=== PATIENT | male | born 1960 | race American Indian/Alaskan Native ===

== ENCOUNTER 2020-05-22 14:35 | Emergency (ER) | payer MEDICAID, OTHER ==
[~2020-05-22] VITALS: Ht 182.9 cm; Wt 122.7 kg
[~2020-05-22 14:35] MED LIST: ASPI-611 PO; HYDR-4353 PO; IBUP-1984 PO; LISI40TA4 PO
[2020-05-22 16:10] LABS: BASOPHILS # (AUTO) 0.1 X10'3 (0-0.2); BASOPHILS % (AUTO) 0.6 % (0-1); EOSINOPHILS # (AUTO) 0.2 X10'3 (0-0.9); EOSINOPHILS % (AUTO) 1.8 % (0-6); HEMATOCRIT 28.6 % (42.0-52.0); HEMOGLOBIN 9.5 g/dl (14.0-17.9); LYMPHOCYTES # (AUTO) 1.3 X10'3 (1.1-4.8); LYMPHOCYTES % (AUTO) 14.6 % (21-51); MEAN CORPUSCULAR HEMOGLOBIN 30.5 PG (27.0-31.0); MEAN CORPUSCULAR HGB CONC 33.1 g/dL (33.0-36.5); MEAN CORPUSCULAR VOLUME 92.2 FL (78-98); MEAN PLATELET VOLUME 8.5 FL (7.4-10.4); MONOCYTES # (AUTO) 1.3 X10'3 (0-0.9); MONOCYTES % (AUTO) 14.3 % (2-12); NEUTROPHILS # (AUTO) 6.1 X10'3 (1.8-7.7); NEUTROPHILS % (AUTO) 68.7 % (42-75); PLATELET COUNT 205 X10'3 (140-440); RED BLOOD COUNT 3.11 X10'6 (4.70-6.10); RED CELL DISTRIBUTION WIDTH 16.2 % (11.5-14.5); WHITE BLOOD COUNT 8.9 X10'3 (4.5-11.0)
[2020-05-22] MEDS ORDERED: furosemide 10 MG/1 ML 10ml inj IV ONE (16:15)
[2020-05-22 16:26] LABS: ALANINE AMINOTRANSFERASE 41 U/L (12-78); ALBUMIN 2.7 G/DL (3.4-5.0); ALBUMIN/GLOBULIN RATIO 0.8 (1.1-1.5); ALKALINE PHOSPHATASE 151 IU/L (46-116); ANION GAP 6 (8-16); ASPARTATE AMINO TRANSFERASE 81 U/L (10-37); BILIRUBIN,TOTAL 2.5 MG/DL (0.1-1.0); BLOOD UREA NITROGEN 5 MG/DL (7-18); BUN/CREATININE RATIO 5.3 (5.4-32.0); CALCIUM 8.4 MG/DL (8.5-10.1); CHLORIDE 102 MMOL/L (99-107); CREATININE 0.95 MG/DL (0.60-1.10); GLUCOSE 110 MG/DL (70-104); POTASSIUM 3.8 MMOL/L (3.5-5.1); SODIUM 137 MMOL/L (135-145); TOTAL CARBON DIOXIDE 28.6 MMOL/L (24-32); TOTAL PROTEIN 6.3 G/DL (6.4-8.2); eGFR 81 ML/MIN
[2020-05-22 16:33] LABS: CLARITY,URINE CLEAR (Clear); COLOR,URINE YELLOW (Yellow); GLUCOSE, URINE NEGATIVE (Neg); KETONES,URINE TRACE mg/dl (Neg); LEUKOCYTE ESTERASE ,URINE TRACE (Neg); NITRITES, URINE NEGATIVE (Neg); OCCULT BLOOD,URINE NEGATIVE (Neg); PROTEIN,URINE NEGATIVE (Neg)
[2020-05-22 16:37] LABS: LIPASE < 50 U/L (73-393); MAGNESIUM 1.7 MG/DL (1.5-2.4)
[2020-05-22 16:40] LABS: UA COLLECTION TYPE URINAL
[2020-05-22 16:41] LABS: BACTERIA,URINE NONE SEEN /HPF (Neg); MUCUS STRANDS FEW /LPF (Neg); RBC,URINE NONE SEEN /HPF (0-2); SQUAMOUS EPITHELIAL CELL,UR FEW /LPF (FEW); TRANSITIONAL EPI CELLS,URINE FEW /HPF; WBC,URINE 0-4 /HPF (0-4)
[2020-05-22 16:59] VITALS: BP 123/75
[2020-05-22 17:21] LABS: ETHANOL < 0.010 GM/DL (0.0-0.010)
--- NOTE | 2020-05-22 17:32 | NUR ---
pt ambulated without assistance around the providers and nurses station, provider visualized pt ambulating.
[2020-05-22 18:10] LABS: URINE AMPHETAMINE SCREEN NEGATIVE (Neg); URINE BARBITUATE SCREEN NEGATIVE (Neg); URINE BENZODIAZEPINES SCREEN NEGATIVE (Neg); URINE CANNABINOID SCREEN NEGATIVE (Neg); URINE COCAINE SCREEN NEGATIVE (Neg); URINE METHADONE SCREEN NEGATIVE (Neg); URINE OPIATE SCREEN POSITIVE (Neg); URINE PHENCYCLIDINE SCREEN NEGATIVE (Neg)
== END 2020-05-22 19:02 | disposition home or self-care (01) ==
LOC: ER 14:36
DX: R60.0 Localized edema (principal); K70.30 Alcoholic cirrhosis of liver without ascites; R42 Dizziness and giddiness; I48.91 Unspecified atrial fibrillation; I10 Essential (primary) hypertension; Z87.891 Personal history of nicotine dependence; Z72.89 Other problems related to lifestyle; Z79.82 Long term (current) use of aspirin; Z79.899 Other long term (current) drug therapy
CPT/HCPCS: 36415; 70450; 80053; 80305; 80320; 81001; 82140; 83690; 83735; 83880; 85025; 85610; 87088; 93005; 96374; 99285; J1940

== ENCOUNTER 2020-06-18 07:57 | Day surgery (SDC) | payer MEDICAID, OTHER ==
[~2020-06-18] VITALS: Ht 182.9 cm; Wt 131.5 kg
[2020-06-18] VITALS (8 sets, daily range): BP systolic 104–114; BP diastolic 66–75
[2020-06-18] MEDS ORDERED: albumin 25% 100mL bottle x 1 IV PRN (08:20)
[2020-06-18] MEDS ORDERED: PANT40TA54 PO (08:59)
[2020-06-18] MEDS ORDERED: SERT100T10 PO (08:59)
[2020-06-18] MEDS ORDERED: DIGO250T PO (08:59)
[2020-06-18] MEDS ORDERED: DILT-35 PO (08:59)
[2020-06-18] MEDS ORDERED: FOLI0.4T14 PO (08:59)
[2020-06-18] MEDS ORDERED: ALBU18HF2 (08:59)
[2020-06-18] MEDS ORDERED: METO-395 PO (08:59)
[2020-06-18] MEDS ORDERED: BUPR1PAT (08:59)
[2020-06-18] MEDS ORDERED: AMIO200T61 PO (08:59)
[2020-06-18] MEDS ORDERED: ONDA8TAB13 PO (08:59)
[2020-06-18] MEDS ORDERED: FURO40TA4 PO (08:59)
[2020-06-18] MEDS ORDERED: FERR324T PO (08:59)
[2020-06-18] MEDS ORDERED: POTA20TA19 PO (08:59)
[2020-06-18] MEDS ORDERED: LORA-269 PO (08:59)
[2020-06-18] MEDS ORDERED: SPIR25TA5 PO (08:59)
== END 2020-06-18 11:23 | disposition home or self-care (01) ==
LOC: SSTAY O 07:57
PROVIDERS: ATTEND Radiology Vascular & Interventional Radiology
DX: R18.8 Other ascites (principal); K74.60 Unspecified cirrhosis of liver; K72.90 Hepatic failure, unspecified without coma; I10 Essential (primary) hypertension; I48.91 Unspecified atrial fibrillation; Z87.891 Personal history of nicotine dependence; Z79.82 Long term (current) use of aspirin; Z79.899 Other long term (current) drug therapy; Z98.890 Other specified postprocedural states
CPT/HCPCS: 49083; P9047

== ENCOUNTER 2020-07-12 07:08 | Day surgery (SDC) | payer MEDICAID ==
[2020-07-12] VITALS (13 sets, daily range): BP systolic 91–125; BP diastolic 55–79
[~2020-07-12] VITALS: Ht 182.9 cm; Wt 127.5 kg
[~2020-07-12 07:08] MED LIST changes: +ALBU18HF2; +AMIO200T61 PO; +BUPR1PAT; +DIGO250T PO; +DILT-35 PO; +FERR324T PO; +FOLI0.4T14 PO; +FURO40TA4 PO; -HYDR-4353 PO; -IBUP-1984 PO; -LISI40TA4 PO; +LORA-269 PO; +METO-395 PO; +ONDA8TAB13 PO; +PANT40TA54 PO; +POTA20TA19 PO; +SERT-434 PO; +SPIR25TA5 PO
[2020-07-12] MEDS: albumin 25% 100mL bottle x 1 IV PRN ×2 (09:05→09:39)
== END 2020-07-12 11:15 | disposition home or self-care (01) ==
LOC: SSTAY O 07:08
PROVIDERS: ATTEND Radiology Vascular & Interventional Radiology
DX: R18.8 Other ascites (principal); I48.91 Unspecified atrial fibrillation; I10 Essential (primary) hypertension; K72.90 Hepatic failure, unspecified without coma; Z98.890 Other specified postprocedural states; Z87.891 Personal history of nicotine dependence; Z72.89 Other problems related to lifestyle; Z79.899 Other long term (current) drug therapy; Z79.82 Long term (current) use of aspirin
CPT/HCPCS: 49083; P9047

== ENCOUNTER 2020-07-26 07:32 | Day surgery (SDC) | payer MEDICAID ==
[~2020-07-26] VITALS: Ht 182.9 cm; Wt 111.4 kg
[2020-07-26] VITALS (10 sets, daily range): BP systolic 91–121; BP diastolic 55–85
[2020-07-26] MEDS ORDERED: albumin 25% 100mL bottle x 1 IV PRN (08:00)
[2020-07-26] MEDS ORDERED: DOXY-327 PO (08:08)
[2020-07-26] MEDS ORDERED: DICL100G15 TOP (08:08)
== END 2020-07-26 10:55 | disposition home or self-care (01) ==
LOC: SSTAY O 07:32
PROVIDERS: ATTEND Radiology Diagnostic Radiology
DX: R18.8 Other ascites (principal); I48.91 Unspecified atrial fibrillation; I10 Essential (primary) hypertension; K74.60 Unspecified cirrhosis of liver; K72.90 Hepatic failure, unspecified without coma; Z87.891 Personal history of nicotine dependence; Z98.890 Other specified postprocedural states; Z79.899 Other long term (current) drug therapy; Z79.82 Long term (current) use of aspirin; Z72.89 Other problems related to lifestyle
CPT/HCPCS: 49083; P9047

== ENCOUNTER 2020-10-04 07:26 | Day surgery (SDC) | payer MEDICAID ==
[2020-10-04] VITALS (11 sets, daily range): BP systolic 101–147; BP diastolic 59–80
[~2020-10-04] VITALS: Ht 182.9 cm; Wt 93.8 kg
[~2020-10-04 07:26] MED LIST changes: -ALBU18HF2; +DICL100G15 TOP; +DOXY-327 PO; -SERT-434 PO
[2020-10-04] MEDS: albumin 25% 100mL bottle x 1 IV PRN ×2 (09:07→09:52)
== END 2020-10-04 11:20 | disposition home or self-care (01) ==
LOC: SSTAY O 07:26
PROVIDERS: ATTEND Radiology Vascular & Interventional Radiology
DX: R18.8 Other ascites (principal); K74.60 Unspecified cirrhosis of liver; I10 Essential (primary) hypertension; I48.91 Unspecified atrial fibrillation; K72.90 Hepatic failure, unspecified without coma; Z98.890 Other specified postprocedural states; Z87.891 Personal history of nicotine dependence; Z88.5 Allergy status to narcotic agent; Z79.899 Other long term (current) drug therapy; Z79.82 Long term (current) use of aspirin
CPT/HCPCS: 49083; P9047